=== PATIENT | male | born 1960 | race Caucasian/White ===

== ENCOUNTER 2016-09-30 10:38 | Emergency (ER) | payer MEDICAID, OTHER ==
[~2016-09-30] VITALS: Ht 182.9 cm; Wt 70.5 kg
[~2016-09-30 10:38] MED LIST: LIB5 PO
[2016-09-30 12:17] VITALS: BP 119/87
== END 2016-09-30 12:43 | disposition home or self-care (01) ==
LOC: EMS 10:39
DX: F10.20 Alcohol dependence, uncomplicated (principal); F11.90 Opioid use, unspecified, uncomplicated; F15.90 Other stimulant use, unspecified, uncomplicated; F17.210 Nicotine dependence, cigarettes, uncomplicated; Y90.9 Presence of alcohol in blood, level not specified
CPT/HCPCS: 99283